=== PATIENT | female | born 1955 | race African-American/Black ===

== ENCOUNTER → 2016-07-28 | Outpatient (CLI) | payer BC ==
[~2016-07-28] MED LIST: APAP500 PO; FISH OIL 1,001000 M2 PO; GLUCOSAMINE CH1 EAC2 PO; MEGA BIOTIN10000 MCG PO; PERCOCET PO; XARELTO10 MG PO
== END ==
LOC: RAD 02:03
DX: Z12.31 Encounter for screening mammogram for malignant neoplasm of breast (principal)

== ENCOUNTER → 2017-08-31 | Outpatient (CLI) | payer BC | LOC: RAD 08-24 01:28 | DX: Z12.31 Encounter for screening mammogram for malignant neoplasm of breast (principal) ==

== ENCOUNTER → 2018-10-08 | Outpatient (CLI) | payer BC | LOC: RAD 11:43 | DX: Z12.31 Encounter for screening mammogram for malignant neoplasm of breast (principal) ==

== ENCOUNTER → 2020-08-05 | Outpatient (CLI) | payer BC | LOC: BC 11:05 | PROVIDERS: ATTEND Internal Medicine | DX: Z12.31 Encounter for screening mammogram for malignant neoplasm of breast (principal) ==